=== PATIENT | male | born 1995 | race Caucasian/White ===

== ENCOUNTER 2025-08-16 13:46 | Emergency (ER) | payer OTHER ==
[2025-08-16 13:55] VITALS: RESP 18; BMI 26.2
[2025-08-16] MEDS ORDERED: ACETAMINOPHEN INJECTION 100 ML ONE (14:33)
[2025-08-16] MEDS ORDERED: FAMOTIDINE 20 MG/50 ML IVPB 20 MG/50 ML MG IVPB ONE (14:33)
[2025-08-16 14:38] LABS: ABSOLUTE IMMATURE GRANULOCYTES 0.03 x10^3/uL (0.0-0.031); BASOPHILS # 0.03 x10^3/uL (0.01-0.08); EOSINOPHIL % 0.4 % (0.8-7.0); EOSINOPHILS # 0.04 x10^3/uL (0.04-0.54); MCHC 31.0 g/dl (32.3-36.5); MEAN CELL VOLUME 93.4 fl (79.0-92.2); MEAN PLT VOLUME 9.4 fl (9.4-12.4); MONOCYTE # 0.66 x10^3/uL (0.30-0.82); MONOCYTE % 6.0 % (5.3-12.2); RDW 14.0 % (11.9-15.3)
[2025-08-16] MEDS: ACETAMINOPHEN 1000 MG/100 ML BAG IVPB ONE (14:42)
[2025-08-16] MEDS: FAMOTIDINE 20 MG/50 ML IVPB 20 MG/50 ML MG IVPB ONE (14:42)
[2025-08-16] MEDS: SODIUM CHLORIDE 0.9% 500 ML INFUS.BAG IV ONE (14:42)
[2025-08-16 15:05] LABS: GLUCOSE,RANDOM 88.0 mg/dL (74-106); TOT PROT 7.5 g/dl (6.4-8.2)
[2025-08-16 15:06] LABS: CO2 28.0 mmol/L (21-32)
[2025-08-16 15:07] LABS: ALK PHOS 92.0 U/L (40-150)
[2025-08-16 15:10] LABS: CREATININE 0.76 mg/dL (0.55-1.3); SGOT/AST 282.0 U/L (5-34); SGPT/ALT 233.0 U/L (0-55)
[2025-08-16 15:30] LABS: HCV DIAGNOSTIC IN-HOUSE W/RFLX NON-REACTIVE (NONREACTIVE)
[2025-08-16 15:31] LABS: HIV INTERPRETATION NEGATIVE (NEGATIVE)
[2025-08-16 17:43] VITALS: BP 121/77; PULSE 58; TEMP 97.7
== END 2025-08-16 18:38 | disposition home or self-care (01) ==
LOC: JER 13:46
PROC: 3E033GC Introduction of Other Therapeutic Substance into Peripheral Vein, Percutaneous Approach (ICD-10-PCS; principal; 2025-08-16)
PROC: 3E033NZ Introduction of Analgesics, Hypnotics, Sedatives into Peripheral Vein, Percutaneous Approach (ICD-10-PCS; 2025-08-16)
DX: R16.0 Hepatomegaly, not elsewhere classified (principal); R74.01 Elevation of levels of liver transaminase levels; K59.00 Constipation, unspecified; R11.0 Nausea; R10.13 Epigastric pain; R10.32 Left lower quadrant pain
CPT/HCPCS: 36415; 74177-TC; 76705-TC; 80053; 83690; 85025; 86803; 87389; 99285-25; Q9967